=== PATIENT | female | born 1990 | race Caucasian/White ===

== ENCOUNTER 2023-08-23 08:18 | Emergency (ER) | payer MEDICAID ==
--- NOTE | 2023-08-23 08:21 | ERPHSYRPT ---
- History of Present Illness Time Seen by Provider: 08/23/23 08:21 Source: patient Exam Limitations: no limitations Physician History: This is a 33-year-old overweight white female patient who presents with 3-day history of intermittent cough, sore throat and left earache. Patient has no known exposure to individuals with COVID-19 infection or similar symptoms. Patient has no chest pain. She has no shortness of breath. She has no abdominal pain. She has no nausea vomiting or diarrhea symptoms. Timing/Duration: day(s) (3) Cough Quality/Degree: mild Modifying Factors: Improves With: coughing Associated Symptoms: cough (Left), earache, sore throat, No chest pain/soreness, No headache, No shortness of breath Allergies/Adverse Reactions: No Known Drug Allergies Allergy (Verified 08/23/23 08:31) Home Medications: Lisinopril 10 mg [Zestril 10 MG] 1 tab PO DAILY 08/23/23 [History] Travel Risk - International Travel Have you traveled outside of the country in past 3 weeks: No - Coronavirus Screening Are you exhibiting any of the following symptoms?: Yes Symptoms: Cough: New Onset Close contact with a COVID-19 positive Pt in past 14-21 Days: No - Review of Systems Constitutional: No Symptoms Eyes: No Symptoms Ears, Nose, & Throat: Ear Pain, Throat Pain (Left) Respiratory: Cough, No Dyspnea, No Wheezing Cardiac: No Symptoms, No Chest Pain Abdominal/Gastrointestinal: No Symptoms Genitourinary Symptoms: No Symptoms Musculoskeletal: No Symptoms Skin: No Symptoms Neurological: No Symptoms Psychological: No Symptoms Endocrine: No Symptoms Hematologic/Lymphatic: No Symptoms Immunological/Allergic: No Symptoms All Other Systems: Reviewed and Negative - Past Medical History Pertinent Past Medical History: Yes - Past Surgical History Past Surgical History: Yes - Nursing Vital Signs Nursing Vital Signs: Initial Vital Signs Temperature 98.3 F 08/23/23 08:19 Pulse Rate 72 08/23/23 08:19 Respiratory Rate 17 08/23/23 08:19 Blood Pressure 138/87 08/23/23 08:19 O2 Sat by Pulse Oximetry 96 08/23/23 08:19 Pain Scale Pain Intensity 5 - Physical Exam General Appearance: no apparent distress, alert, anxiety, obese Eye Exam: PERRL/EOMI, eyes nml inspection Ears, Nose, Throat Exam: TM abnormal (L) (Redness tympanic membrane and left ear canal), pharyngeal erythema Neck Exam: normal inspection (Mild), non-tender, supple, full range of motion Respiratory Exam: normal breath sounds, lungs clear, airway intact, No chest tenderness, No respiratory distress Cardiovascular Exam: regular rate/rhythm, normal heart sounds, normal peripheral pulses Gastrointestinal/Abdomen Exam: soft, normal bowel sounds, No tenderness Pelvic Exam: not done Rectal Exam: not done Back Exam: normal inspection, normal range of motion, No CVA tenderness, No vertebral tenderness Extremity Exam: normal inspection, normal range of motion, pelvis stable Neurologic Exam: alert, oriented x 3, cooperative, health information technologist II-XII nml as tested, normal mood/affect, nml cerebellar function, nml station & gait, sensation nml Skin Exam: normal color, warm, dry Lymphatic Exam: No adenopathy SpO2 Interpretation: normal O2 Delivery: Room Air - Course Nursing assessment & vital signs reviewed: Yes Ordered Tests: Medication Summary Discontinued Medications Generic Name Dose Route Start Last Admin Trade Name Devon PRN Reason Stop Dose Admin Hydrocodone Bitart/Acetaminophen 10 ml 08/23/23 09:25 08/23/23 09:54 Hydrocodone/Acetaminophen 5 Ml Udcup PO 08/23/23 09:26 10 ml STAT STA Administration Hydrocodone Bitart/Acetaminophen Confirm 08/23/23 09:47 Hydrocodone/Acetaminophen 5 Ml Udcup Administered 08/23/23 09:48 Dose 10 ml .ROUTE .STK-MED ONE Prednisone 20 mg 08/23/23 09:25 08/23/23 09:54 Prednisone 20 Mg Tablet PO 08/23/23 09:26 20 mg STAT ONE Administration Prednisone Confirm 08/23/23 09:47 Prednisone 20 Mg Tablet Administered 08/23/23 09:48 Dose 20 mg .ROUTE .STK-MED ONE Lab/Rad Data: Laboratory Results 08/23/23 Range/Units 08:55 Influenza Type A Ag NEGATIVE (NEGATIVE) Influenza Type B Ag NEGATIVE (NEGATIVE) RSV (PCR) NEGATIVE (NEGATIVE) SARS-CoV-2 (PCR) NEGATIVE (NEGATIVE) - Progress Progress: unchanged Air Movement: good Progress Note: 08/23/23 08:45 This patient's medical issue is 1 of mild/low complexity. The level of complexity in the work-up performed is based on review of the patient's past medical history, review the patient's drug allergy list, review of the patient's medication list, history of present illness and physical findings on examination. The work-up in this patient includes physical examination as well as viral studies and group A strep test. Blood Culture(s) Obtained: No Antibiotics given: Yes Counseled pt/family regarding: lab results, diagnosis, need for follow-up Medical Desision Making - Independent Historian Additional History obtained from: Mother - Diagnostic Testing Diagnostic test were ordered, analyzed, and reviewed by me: Yes - Risk of complications The pt has a mod risk of morbidity or mortality based on: Need for prescription drug management - Departure Departure Disposition: Home Clinical Impression: Left otitis media Condition: Stable Critical Care Time: No Referrals: LAYO ZACARIAS MD [Primary Care Provider] - Follow up/PCP as directed Additional Instructions: Drink plenty of fluids. Take your medication as prescribed. Call your primary care provider today, 08/23/2023, to make arrangements for follow-up appointment the next 3 to 5 days Prescriptions: Hydrocodone/Acetaminophen [Hydrocodone-Acetamn 7.5-325/15] 10 ml PO Q8H PRN PRN #120 ml MDD 30 ml PRN Reason: Cough Prednisone 10 mg [Deltasone 10 mg] 10 mg PO TID #12 tablet Azithromycin 250 mg [Zithromax 250 MG TABLET] 250 mg PO ZPACK #6 tablet
[2023-08-23 08:44] VITALS: TEMP 98.3
[2023-08-23] MEDS ORDERED: DELTASONE 20 MG PO ONE (09:25)
[2023-08-23] MEDS ORDERED: HYDROCODONE-ACETAMIN 2.5-108/5 ML SOLUTION PO STA (09:25)
[2023-08-23 09:44] LABS: INFLUENZA A NEGATIVE (NEGATIVE); INFLUENZA B NEGATIVE (NEGATIVE); RESPIRATORY SYNCTIAL VIRUS NEGATIVE (NEGATIVE); SARS-CoV-2 Xpert Express NEGATIVE (NEGATIVE)
[2023-08-23] MEDS ORDERED: HYDROCODONE-ACETAMIN 2.5-108/5 ML SOLUTION ONE (09:47)
[2023-08-23] MEDS ORDERED: DELTASONE 20 MG ONE (09:47)
[2023-08-23 09:51] VITALS: BP 113/73; RESP 18
[2023-08-23 10:40] VITALS: PULSE 79; O2SAT 98
== END 2023-08-23 10:41 | disposition home or self-care (01) ==
LOC: ED 08:18
DX: H66.92 Otitis media, unspecified, left ear (principal); J02.9 Acute pharyngitis, unspecified; R05.1 Acute cough; H92.02 Otalgia, left ear; Z79.891 Long term (current) use of opiate analgesic; Z79.52 Long term (current) use of systemic steroids; Z79.899 Other long term (current) drug therapy
CPT/HCPCS: 0241U; 87651; 99283; 96375; A9270-GY